=== PATIENT | female | born 1945 | race Two or more races ===

== ENCOUNTER 2018-10-01 11:37 | Outpatient (CLI) | payer OTHER | END 2018-10-01 11:41 | disposition home or self-care (01) | LOC: LAB 11:37 | DX: J10.1 Influenza due to other identified influenza virus with other respiratory manifestations (principal) ==

== ENCOUNTER 2019-04-16 12:51 | Outpatient (CLI) | payer OTHER | END 2019-04-16 15:40 | disposition home or self-care (01) | LOC: RAD 12:51 | DX: R06.02 Shortness of breath (principal); J20.8 Acute bronchitis due to other specified organisms; J45.901 Unspecified asthma with (acute) exacerbation ==

== ENCOUNTER 2019-04-26 10:02 | Outpatient (CLI) | payer OTHER | END 2019-04-26 10:20 | disposition home or self-care (01) | LOC: SONOGRAMA 10:02 | DX: M81.0 Age-related osteoporosis without current pathological fracture (principal); Z12.31 Encounter for screening mammogram for malignant neoplasm of breast; N64.4 Mastodynia; R05 Cough ==

== ENCOUNTER 2019-05-17 14:41 | Outpatient (CLI) | payer OTHER | END 2019-05-17 15:02 | disposition home or self-care (01) | LOC: NUCLEAR 14:41 | DX: M81.0 Age-related osteoporosis without current pathological fracture (principal); Z13.820 Encounter for screening for osteoporosis; Z12.31 Encounter for screening mammogram for malignant neoplasm of breast; N64.4 Mastodynia; R05 Cough ==

== ENCOUNTER 2020-08-31 13:49 | Outpatient (CLI) | payer OTHER | END 2020-08-31 13:52 | disposition home or self-care (01) | LOC: EKG 13:49 | PROVIDERS: ATTEND Surgery | DX: I10 Essential (primary) hypertension (principal); R94.31 Abnormal electrocardiogram [ECG] [EKG] ==

== ENCOUNTER 2020-08-31 14:54 | Outpatient (CLI) | payer OTHER | END 2020-08-31 14:59 | disposition home or self-care (01) | LOC: RAD 14:54 | PROVIDERS: ATTEND Surgery | DX: R07.89 Other chest pain (principal); R15.9 Full incontinence of feces; R15.2 Fecal urgency; K62.2 Anal prolapse; K64.2 Third degree hemorrhoids ==

== ENCOUNTER 2020-09-20 06:44 | Day surgery (SDC) | payer OTHER ==
[2020-09-20] MEDS ORDERED: PERCOCET 5-3251 EACH PO (08:21)
[2020-09-20] MEDS ORDERED: KETO10TA2 PO (08:21)
[2020-09-20] MEDS ORDERED: NEURONTIN300 MG PO (08:21)
== END 2020-09-20 17:15 | disposition home or self-care (01) ==
LOC: CIR.AMB 06:44
PROVIDERS: ATTEND Surgery
DX: K64.8 Other hemorrhoids (principal); Z20.822 Contact with and (suspected) exposure to COVID-19

== ENCOUNTER 2022-11-04 14:04 | Outpatient (CLI) | payer OTHER ==
[~2022-11-04 14:04] MED LIST: KETO10TA2 PO; NEURONTIN300 MG PO; PERCOCET 5-3251 EACH PO
== END 2022-11-04 14:13 | disposition home or self-care (01) ==
LOC: RAD 14:04
PROVIDERS: ATTEND General Practice
DX: M54.50 Low back pain, unspecified (principal); M51.36 Other intervertebral disc degeneration, lumbar region

== ENCOUNTER 2023-05-12 10:43 | Outpatient (CLI) | payer OTHER | END 2023-05-12 10:46 | disposition home or self-care (01) | LOC: MAMO-SONO 10:43 | PROVIDERS: ATTEND General Practice | DX: N64.4 Mastodynia (principal); Z12.31 Encounter for screening mammogram for malignant neoplasm of breast ==

== ENCOUNTER 2024-11-30 09:54 | Outpatient (CLI) | payer OTHER | END 2024-11-30 09:55 | disposition home or self-care (01) | LOC: NUCLEAR 09:54 | PROVIDERS: ATTEND Internal Medicine | DX: I87.2 Venous insufficiency (chronic) (peripheral) (principal); I70.0 Atherosclerosis of aorta ==